=== PATIENT | female | born 1970 | race Two or more races ===

== ENCOUNTER 2024-12-14 09:46 | Outpatient (CLI) | payer OTHER ==
[2024-12-14 10:36] LABS: BUN CREA RATIO 31.0 (7.0-25.0); CREATININE SERUM 0.48 mg/dL (0.55-1.02); GFR 134.27; GLUCOSE FASTING 94.0 mg/dL (65-100); OSMOLALITY SERUM 284.0 MOSM/KG (275-295)
== END 2024-12-14 09:52 | disposition home or self-care (01) ==
LOC: LAB 09:46
DX: E87.5 Hyperkalemia (principal)